=== PATIENT | male | born 1990 | race Hispanic/Latino ===

== ENCOUNTER 2020-10-10 01:41 | Emergency (ER) | payer OTHER ==
[~2020-10-10] VITALS: Ht 167.6 cm; Wt 102.1 kg
[2020-10-10 01:47] VITALS: BP 115/79
[2020-10-10] MEDS ORDERED: AMOXICILLIN/POTASSIUM CLAV 500-125 TABLET PO ONE ×2 (02:00→03:10)
[2020-10-10] MEDS ORDERED: MELO7.5T12 PO (03:06)
[2020-10-10] MEDS ORDERED: AMOX-426 PO (03:06)
[2020-10-10 03:17] VITALS: BP 126/78
== END 2020-10-10 03:23 | disposition home or self-care (01) ==
LOC: EDH 01:41
DX: S02.2XXA Fracture of nasal bones, initial encounter for closed fracture (principal); Z79.899 Other long term (current) drug therapy; W51.XXXA Accidental striking against or bumped into by another person, initial encounter; Y93.89 Activity, other specified; Y92.69 Other specified industrial and construction area as the place of occurrence of the external cause; Y99.8 Other external cause status
CPT/HCPCS: 70486

== ENCOUNTER 2021-03-20 06:46 | Day surgery (SDC) | payer OTHER ==
[2021-03-09 14:03] LABS: BASOPHILS % (AUTO) 0.1 % (0.0-5.0); EOSINOPHILS % (AUTO) 0.7 % (0.0-8.0); HEMATOCRIT 44.2 % (42-54); LYMPHOCYTES % (AUTO) 24.1 % (21.0-51.0); MEAN CORPUSCULAR HEMOGLOBIN 29.4 pg (27.0-33.0); MEAN CORPUSCULAR HGB CONC 34.2 g/dL (32.0-36.0); MEAN CORPUSCULAR VOLUME 86.2 fL (79-99); MONOCYTES % (AUTO) 6.9 % (3.0-13.0); PLATELET COUNT (AUTO) 285 K/uL (130-400); RED BLOOD CELL COUNT(AUTO) 5.13 MIL/uL (4.50-6.20); RED CELL DISTRIBUTION WIDTH 12.4 % (11.0-15.5); WHITE BLOOD COUNT (AUTO) 8.8 K/uL (4.8-10.8)
[2021-03-09 14:14] LABS: INR 1.01 (0.85-1.15)
[2021-03-09 14:15] LABS: PARTIAL THROMBOPLASTIN TIME 31.5 SEC (26.3-35.5)
[2021-03-09 14:18] LABS: ALBUMIN 4.1 g/dL (3.5-5.0); BILIRUBIN,TOTAL 0.4 mg/dL (0.2-1.0); CREATININE 0.8 mg/dL (0.5-1.5); POTASSIUM 3.5 mmol/L (3.5-5.1)
[2021-03-14 08:50] VITALS: BP 122/70
[2021-03-16] MEDS: CEFAZOLIN SODIUM 1 GM VIAL IVP SCH (06:00)
[2021-03-20] VITALS (18 sets, daily range): BP systolic 133–159; BP diastolic 85–103
[~2021-03-20] VITALS: Ht 167.6 cm; Wt 100.2 kg
[~2021-03-20 06:46] MED LIST: AMOX-426 PO; LACTATED RINGERS 1000ML 1,000 ML IV ONE; MELO7.5T12 PO
[2021-03-20] MEDS ORDERED: LIDOCAINE PF 100MG/5ML (2%) SYRINGE 5ML ONE (06:48)
[2021-03-20] MEDS ORDERED: SUCCINYLCHOLINE CHLORIDE 20 MG/ML 10 ML VIAL ONE (06:48)
[2021-03-20] MEDS ORDERED: DEXAMETHASONE SOD PHOSPHATE 10MG/ML 1ML VIAL ONE (06:48)
[2021-03-20] MEDS ORDERED: NEOSTIGMINE 5MG/5ML SYR IV ONE (06:49)
[2021-03-20] MEDS ORDERED: ONDANSETRON 4MG INJ ONE (06:49)
[2021-03-20] MEDS ORDERED: ROCURONIUM 10MG/1ML SYR 10 MG/ML ML ONE (06:49)
[2021-03-20] MEDS ORDERED: PROPOFOL 10 MG/ML 20ML VIAL IV ONE (06:49)
[2021-03-20] MEDS ORDERED: MIDAZOLAM HCL 1 MG/ML 2ML VIAL ONE (06:49)
[2021-03-20] MEDS ORDERED: GLYCOPYRROLATE 1 MG/5 ML SYRINGE ONE (06:49)
[2021-03-20] MEDS ORDERED: FENTANYL CITRATE PF 50 MCG/1 ML 2ML VIAL ONE ×3 (06:50→08:53)
[2021-03-20] MEDS ORDERED: LIDOCAINE 1%-EPI 1:100,000 20 ML VIAL IJ ONE (07:03)
[2021-03-20] MEDS ORDERED: BACITRACIN 28.4 GM OINT TP ONE (07:03)
[2021-03-20] MEDS ORDERED: OXYMETAZOLINE HCL SPRAY 15 ML BOTTLE ONE (07:51)
[2021-03-20] MEDS: CEFAZOLIN SODIUM 1 GM VIAL IVP SCH (07:55)
[2021-03-20] MEDS ORDERED: MEPERIDINE-PF 25 MG/ML SYG ONE ×2 (08:52→10:34)
== END 2021-03-20 12:30 | disposition home or self-care (01) ==
LOC: DAH 06:46
PROVIDERS: ATTEND Otolaryngology Plastic Surgery within the Head & Neck
DX: J34.89 Other specified disorders of nose and nasal sinuses (principal); J34.2 Deviated nasal septum; J34.3 Hypertrophy of nasal turbinates; Z20.822 Contact with and (suspected) exposure to COVID-19; Z79.01 Long term (current) use of anticoagulants; Z79.899 Other long term (current) drug therapy
CPT/HCPCS: 30520; 30930; 36415; 71046; 80053; 85025; 85610; 85730; 87635 ×2; 93005; A4215; A4221; A4222; A4223; A4600; A4606; A4649; A4663; C9803 ×2; J0330; J0690; J1100; J2001; J2175 ×2; J2250; J2405; J2704; J2710; J3010 ×3; J3490 ×2; J7120